=== PATIENT | female | born 1985 | race Caucasian/White ===

== ENCOUNTER → 2018-01-29 18:28 | Observation (INO) ==
--- NOTE | 2018-01-29 18:22 | Discharge Summary ---
Date of Encounter: 01/29/18 Time of Encounter: 18:00 - Discharge Diagnosis (1) 36 to 37 weeks gestation of Priority: Primary Status: Chronic (2) IUGR (intrauterine growth restriction) affecting care of mother Priority: Secondary Status: Chronic Comments: Reactive nonstress test Qualifiers: Fetus number: single or unspecified fetus Trimester: third trimester Qualified Code(s): O36.5930 - Maternal care for other known or suspected poor growth, third trimester, not applicable or unspecified (3) Nicotine dependence Priority: Secondary Status: Chronic Qualifiers: Nicotine product type: cigarettes Substance use status: uncomplicated Qualified Code(s): F17.210 - Nicotine dependence, cigarettes, uncomplicated (4) 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, antepartum Priority: Secondary Status: Chronic - Discharge Medications Home Medications: Vit/Iron Fumarate/FA [ Tablet] 1 each PO DAILY #30 tablet 08/24 [Rx] Buprenorphine HCl [Subutex] 8 mg SL BID 01/29/18 [History] Citalopram Hydrobromide [Celexa] 20 mg PO DAILY 01/29/18 [History] Allergies/Adverse Reactions: 3 Allergy/AdvReac Type Severity Reaction Status Date / Time Cefaclor [From [facility]] Allergy Hives Verified 08/12/17 13:51 Penicillins Allergy Rash Verified 08/12/17 13:51 Date of admission: 01/29/18 15:30 Primary care physician: PCP NONE - Patient Status Disposition: Home, Self-Care Condition: Good Functional capacity at discharge: independent ambulation Overall status at discharge: patient is progressing back to baseline - Discharge Instructions Follow Up With: NONE,PCP [Primary Care Provider] - - Diet and Activity Activity: increase activity as tolerated Hospital Course POKER IN Time Attestation: Total time spent providing and/or coordinating discharge services: Exam - Constitutional General appearance IM: A&O X 3 - Respiratory Respiratory exam: Present: CTAB - Cardiovascular Cardiovascular exam IM: Present: RRR - GI/Abdominal GI/Abdominal exam IM: soft - Rectal Rectal exam: deferred - Additional comments: Cervix is 2 cm dilated/60% effaced/-1 station - VTE Reasons for not Prescribing Prophylaxis: Treatment not Indicated - Low risk for VTE - Attending Attestation mariana soni md facog
== END | disposition home or self-care (01) ==
LOC: 1NENULAB
PROVIDERS: ADMIT Obstetrics & Gynecology; ATTEND Obstetrics & Gynecology

== ENCOUNTER → 2018-02-03 07:11 | Observation (INO) ==
--- NOTE | 2018-02-02 20:00 | OB/GYN Progress Note ---
Date of Encounter: 02/02/18 Time of Encounter: 19:58 - Assessment and Plan (1) 37 weeks gestation of Current Visit: Yes Status: Acute Monitor overnight Discussed potential for emergent related to decelerations Anticipate discharge home POC per consult with Dr Malave. (2) IUGR (intrauterine growth restriction) affecting care of mother Current Visit: No Status: Chronic Qualifiers: Fetus number: single or unspecified fetus Trimester: third trimester Qualified Code(s): O36.5930 - Maternal care for other known or suspected poor growth, third trimester, not applicable or unspecified (3) Nicotine dependence Current Visit: No Status: Chronic Qualifiers: Nicotine product type: cigarettes Substance use status: uncomplicated Qualified Code(s): F17.210 - Nicotine dependence, cigarettes, uncomplicated (4) 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, antepartum Current Visit: No Status: Chronic Subjective - Subjective Principal diagnosis: Prolonged decels in office Interval history: Ms Foley is a at 37 weeks 3 days that presents to triage from the office for prolonged monitoring r/t prolonged decels in the office during NST today. Her EFW last week was in the 11% last with a BPP of 6/8; Her BPP today was a 8/8 with normal dopplers. She states positive movement. She denies headache, vision changes, epigastric pain, and leaking of fluid/ vaginal pain. Antepartum ROS: movement normal, no new complaints, no contractions Objective - Vital Signs Vital Signs: Intake and Output 02/02/18 02/02/18 02/02/18 07:59 15:59 23:59 Other: Weight 68.039 kg Patient Weight 02/02/18 23:59 Weight 68.039 kg - Exam FHR: auscultation normal, category 1 FHR comments: Baseline 130 with category I tracing; irregular ctx. Auscultation: bilateral: normal Abdomen: Present: normal appearance, soft, gravid Uterus: Present: normal. Absent: firm
[2018-02-02 20:38] LABS: Bilirubin,Urine Small (Negative); Blood,Urine Negative (Negative); Clarity,Urine Cloudy (Clear); Color,Urine Orange (Yellow); Glucose,Urine (UA) Normal (Normal); Ketones,Urine Trace mg/dL (Negative); Leukocyte Esterase,Urine Small (Negative); Nitrite,Urine Positive (Negative); Protein,Urine 30 mg/dL (Neg-Trace); Specific Gravity,Urine > 1.030 (1.010-1.025)
[2018-02-02 20:40] LABS: Bacteria,Urine Few per hpf (None-Few); Squamous Epithelial Cell,Urine Many per lpf (None-Few)
[2018-02-02 20:47] LABS: Amphetamine Screen,Urine Negative ng/mL (Cutoff=1000); Barbiturate Screen,Urine Negative ng/mL (Cutoff=200); Benzodiazepines Screen,Urine Negative ng/mL (Cutoff=200); Cannabinoid Screen,Urine Positive ng/mL (Cutoff = 50); Cocaine Screen,Urine Negative ng/mL (Cutoff= 300); Opiate Screen,Urine Negative ng/mL (Cutoff=300); Phencyclidine Screen,Urine Negative ng/mL (Cutoff=25)
[2018-02-02 20:51] LABS: Hyaline Casts,Urine Few per lpf (None-Few)
[~2018-02-03 07:11] MED LIST: Nitrofurantoin (BID) 100 MG CAPSULE PO SCH
== END | disposition home or self-care (01) ==
LOC: 1NENULAB
PROVIDERS: ADMIT Advanced Practice Midwife; ATTEND Advanced Practice Midwife

== ENCOUNTER 2018-02-06 12:04 | Inpatient (IN) ==
[2018-02-06] MEDS ORDERED: Famotidine 20 MG/2 ML VIAL IVP PRN (13:05)
[2018-02-06] MEDS ORDERED: Ondansetron 4 MG/2 ML VIAL IVP PRN (13:05)
[2018-02-06] MEDS ORDERED: Metoclopramide 10 MG/2 ML VIAL IVP PRN (13:05)
[2018-02-06] MEDS ORDERED: Naloxone 0.4 MG/ML INJ IVP PRN (13:05)
[2018-02-06] MEDS ORDERED: *HR* Nalbuphine 10 MG/ML AMPUL IVP PRN (13:05)
[2018-02-06] MEDS ORDERED: Ringers Solution, Lactated 1,000 ML IVC SCH (13:15)
[2018-02-06] MEDS ORDERED: miSOPROStol 25 MCG TABLET PO PRN (13:20)
[2018-02-06] MEDS ORDERED: Loratadine 10 MG TABLET PO STA (13:45)
[2018-02-06] MEDS ORDERED: Loratadine 10 MG TABLET PO ONE (13:47)
--- NOTE | 2018-02-06 13:49 | OB/GYN History & Physical ---
Date of Encounter: 02/06/18 Time of Encounter: 13:48 Assessment and Plan (1) Encounter for induction of labor Current visit: Yes Status: Acute Transadominal US has BPP of 8/8 with EFW of 5lb in the 5%. Admit to Labor and Delivery Nubain and Epidural as desired 50 mcg of cytotec Continuous monitoring GBS negative Anticipate Vaginal Delivery OB occupational therapist rehab manager is Dr. Sapp (2) IUGR (intrauterine growth restriction) affecting care of mother Current visit: No Status: Chronic Qualifiers: Fetus number: single or unspecified fetus Trimester: third trimester Qualified Code(s): O36.5930 - Maternal care for other known or suspected poor growth, third trimester, not applicable or unspecified (3) Nicotine dependence Current visit: No Status: Chronic Qualifiers: Nicotine product type: cigarettes Substance use status: uncomplicated Qualified Code(s): F17.210 - Nicotine dependence, cigarettes, uncomplicated (4) 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, antepartum Current visit: No Status: Chronic (5) 37 weeks gestation of Current visit: No Status: Acute History of Present Illness Chief complaint: Induction for labor for High Risk HPI: Ms. Foley is a 32 year old female 38 weeks who presents to the labor and delivery floor for induction of labor secondary to high risk . Has been undergoing surveillance. IUGR has been suspected. Estimated weight last week was at the 11th percentile and this week in the 5th percentile . Patient's nonstress test was category 2. Patient had transabdominal US exam showing duran VTX male, +FHR, Grade 1 Placenta- EFW 5lb at 5.1%, NELLIE 8.[address] and bi--BPP 8/8. States she feels movement constantly, denies any baginal bleeding or leakage of clear fluid. Was recently diagnosed with UTI and given Macrobid for treatment. Primary OB provider is Dr. Sapp. Patients states she smoke marijuana last one week ago. Reports smoking 1-2 PPD. Reports having sinus congestion starting last night. Patient is currently on Subutex. She is been followed in our group without any problems. Blood type- A positive GBS status: negative HEP B surface antigen: positive HIV Ab- nonreactive Treponema AB- negative G/C- negative Varicella- positive Urine Drug screen: obtained prior to admission is positive for marijuana. Past Med Surg Social Fam HX - Past Medical History Medical history: no medical history Psychiatric history: anxiety, bipolar, depression - Past Surgical History Surgical History: other Additional surgical history: Teeth extraction - Social History Smoking Status: Current every day smoker Smokeless Tobacco Status: No Alcohol use: none Drug use: marijuana - Family History Mother History Unknown: Yes Adopted: [place]: ricardo foley Living Status: Still Living Hx Family Cardiac Disorders: Yes (2 heart attacks) Hx Family Respiratory Disorders: Yes (THERMOSTAT MACHINE TENDER and emphysema) Hx Family Cancer: No Hx Family GI Disorders: Yes (Colostomy bag from impacted bowels) Hx Family Genitourinary Disorders: No Hx Family Endocrine Disorder: No Hx Family Musculoskeletal Disorders: No Hx Family Neuromuscular Disorders: No Hx Family Neurologic Disorders: No Hx Family HEENT Disorders: No Hx Family Autoimmune Disorders: No Hx Family Reproductive Disorders: No Hx Family Psychosocial Disorders: Yes (depression and anxiety) Hx Family Medical Disorders: No Obstetrical History - Pregnancies : 3 Para: 2 Term: 1 : 1 Ab's: 0 Livin Medications and Allergies Vit/Iron Fumarate/FA [ Tablet] 1 each PO DAILY #30 tablet 08/24 [Rx] Buprenorphine HCl [Subutex] 8 mg SL BID 01/29/18 [History] Citalopram Hydrobromide [Celexa] 20 mg PO DAILY 01/29/18 [History] Nitrofurantoin (BID) [Macrobid] 100 mg PO BID 5 Days #10 capsule 02/03/18 [Rx] 3 Allergy/AdvReac Type Severity Reaction Status Date / Time Cefaclor [From [facility]] Allergy Hives Verified 02/04/18 09:30 Penicillins Allergy Rash Verified 02/04/18 09:30 Review of System OB All systems PM: reviewed and no additional remarkable complaints except as stated - Constitutional Constitutional ROS IM: no fever(s) - Nose, mouth, and throat Nose, mouth and throat: nasal congestion - Cardiovascular Cardiovascular: leg edema (mild), no dyspnea - Respiratory Respiratory: no cough, no dyspnea - Gastrointestinal Gastrointestinal: no abdominal pain - Genitourinary Genitourinary: no abnormal vaginal bleeding, no vaginal discharge - Neurological Nerological: headache(s) (frontal) Exam - Constitutional Constitutional: no acute distress - HEENT HEENT: PERRL - Neck Neck exam: normal inspection - Lungs Respiratory exam: CTAB - Cardiovascular Cardiovascular exam: RRR, +S1, +S2 - Abdomen Abdomen: Present: gravid, non tender - Extremities Extremities exam: normal capillary refill - Uterus Uterus exam: Absent: tender Results Result Diagrams: 02/06/18 15:25 All other labs normal. - VTE Reasons for not Prescribing Prophylaxis: Treatment not Indicated - Low risk for VTE - Attending Attestation I have examined the patient, reviewed the resident's note, and agree with its contents. Mamadou Sapp MD FACOG
[2018-02-06 15:49] LABS: Basophils % 0.3 %; Eosinophils # 0.1 K/mcL (0.0-0.6); Eosinophils % 1.2 %; Hemoglobin 13.5 g/dL (11.5-15.4); Immature Granulocytes % 0.6 % (0-4); Lymphocytes # 1.7 K/mcL (0.6-4.6); Lymphocytes % 18.4 %; Mean Corpuscular HGB Conc 33.8 g/dL (31.6-35.5); Mean Corpuscular Hemoglobin 30.4 pg (28.0-33.3); Mean Corpuscular Volume 90.1 fL (83.0-100.0); Mean Platelet Volume 12.9 fL (9.4-12.4); Monocytes # 0.7 K/mcL (0.0-1.3); Monocytes % 7.5 %; Neutrophils # 6.8 K/mcL (1.6-8.9); Platelet Count 188 K/mcL (140-400); Red Blood Count 4.44 M/mcL (3.82-4.97); Red Cell Distribution Width 12.9 % (11.5-14.5)
[2018-02-06 15:56] LABS: Amphetamine Screen,Urine Negative ng/mL (Cutoff=1000); Barbiturate Screen,Urine Negative ng/mL (Cutoff=200); Benzodiazepines Screen,Urine Negative ng/mL (Cutoff=200); Cannabinoid Screen,Urine Positive ng/mL (Cutoff = 50); Cocaine Screen,Urine Negative ng/mL (Cutoff= 300); Opiate Screen,Urine Negative ng/mL (Cutoff=300); Phencyclidine Screen,Urine Negative ng/mL (Cutoff=25)
[2018-02-06] MEDS: Nicotine 21 MG PATCH.TD24 TD SCH (19:39)
[2018-02-06] MEDS: *HR* Buprenorphine HCl 8 MG TAB.SUBL SL SCH (20:28)
--- NOTE | 2018-02-06 20:49 | OB Labor Progress Note ---
Date of Encounter: 02/07/18 Time of Encounter: 20:48 Labor Progress Note - Subjective Subjective: 32-year-old female 38 weeks reports that she is still doing well. He reports that uterine contractions are becoming more frequent in nature. - Cervix Cervix: 3 cm, 80% effacement, -1 - Interventions Interventions: We will start Pitocin at this time - Plan Plan: Pitocin administration Continuous monitoring I examined this patient and my medical decision-making was reviewed with the Resident Physician. I agree with the documented findings, disposition and treatment plan as described except to the extent set forth below. Mamadou Sapp MD FACOG
[2018-02-06] MEDS ORDERED: Oxytocin 20 units/ LR 1000 mL 20 UNIT/1,000 ML BAG IVC ONE (20:52)
[2018-02-06] MEDS ORDERED: Oxytocin 20 units/ LR 1000 mL 20 UNIT/1,000 ML BAG IVC SCH (21:00)
[2018-02-06] MEDS ORDERED: Epidural Premix (fent/bupiv) 110 ML EP ONE (23:02)
[2018-02-06] MEDS ORDERED: Bupivacaine-MPF 0.25% 10 ML VIAL ONE (23:04)
[2018-02-06] MEDS ORDERED: Lidocaine -MPF 1% 5 ML AMPUL ONE (23:04)
--- NOTE | 2018-02-06 23:38 | Anesthesia Evaluation PreOp ---
Date of Encounter: 02/06/18 Time of Encounter: 23:05 - Past History Planned Operation: Labor Epidural Cardiac History: Denies any Significant Hx Pulmonary History: Denies Any Significant HX SHELLFISH SHUCKER History: Denies Any Significant HX Other Medical History: Denies Any Significant HX Anesthesia History: No Prior Anesthetic Complications : Yes (38 weeks ) Alcohol Use: none Drug use: marijuana Medications and Allergies Vit/Iron Fumarate/FA [ Tablet] 1 each PO DAILY #30 tablet 08/24 [Rx] Buprenorphine HCl [Subutex] 8 mg SL BID 01/29/18 [History] Citalopram Hydrobromide [Celexa] 20 mg PO DAILY 01/29/18 [History] Nitrofurantoin (BID) [Macrobid] 100 mg PO BID 5 Days #10 capsule 02/03/18 [Rx] 3 Allergy/AdvReac Type Severity Reaction Status Date / Time Cefaclor [From [facility]] Allergy Hives Verified 02/04/18 09:30 Penicillins Allergy Rash Verified 02/04/18 09:30 - Meds/Allergy Pre-op Review Medications Reviewed: Yes Allergies Reviewed: Yes Beta Blockers on Current Med List: No Anesthesia Results - Labs 02/06/18 15:25 Laboratory Tests 02/15/16 02/06/18 00:26 15:25 Hgb 13.5 Hct 40.0 Plt Count 188 Sodium 137 Potassium 3.5 BUN 14 Creatinine 0.69 Anesthesia Exam O2 Sat Height 1.57 m Height 1.57 m Weight 69.7 kg Weight 69.7 kg Height: 5'2 Weight: 153 lbs NPO (# of Hours): MN Pain Scale: 4 - HEENT Pupil (Motor): Pupils equal, EOMI Mallampati: II Teeth: Edentulous Oral Opening: Greater than 3 - SHELLFISH SHUCKER LOC: Oriented SHELLFISH SHUCKER Motor: Normal RUE, Normal LUE, Normal RLE, Normal LLE, Normal Face SHELLFISH SHUCKER Sensory: Normal: RUE, LUE, RLE, LLE, Face - Cardiac Rhythm: Regular Murmur: None JVD: No Carotid Bruit: No - Pulmonary Breath Sounds: bilateral Clear Respiratory Effort: Symmetrical Anesthesia Assess/Plan ASA Score: 2 Modified Jerald Scale for Level of Consciousness: Cooperative, oriented, and tranquil Anesthetic Plan: Regional Monitoring Plan: Standard Monitors Recovery Plan: Other (Discussed LE, risks and benefits, agrees to proceed)
--- NOTE | 2018-02-06 23:41 | Anesthesia Procedures ---
Date of Encounter: 02/06/18 Time of Encounter: 23:05 Procedures: Anesthesia - Epidural/Spinal Patient ID/Chart reviewed: Yes Patient examined: Yes OB Eval: Gestational age: 38weeks OB Eval: : 3 OB Eval: Hx Para: 1 OB Eval: Dilated at (cm): 4 OB Eval: Contractions: Non-stressed pattern Consent Obtained: Yes Supplemental Oxygen: None/Room Air Site Prep: Aseptic Technique, Sterile prep and drape, 0.5% Chlorhexidine/Alcohol Patient position: upright Local Anesthetic: Lidocaine 1% Amount of Local Anesthetic used: 3 Touhy Needle Gauge: 19 Touhy Needle Depth (cm): 4 Test Dose (1.5% Lido + Epi): Volume given (mls): 3 Test Dose Result: Negative Loading Dose Administered: Thru Touhy Needle Infusion Med: 0.125% Bupivacaine w/ 2 mcg/ml Fentanyl Infusion Rate (mls/hr): [address]: Tegaderm, Tape Interspace Used: L3-L4 Loss of Resistance (DAMARIS): Yes Blood: No CSF: No Paresthesia: No
--- NOTE | 2018-02-07 00:04 | OB Labor Progress Note ---
Date of Encounter: 02/06/18 Time of Encounter: 23:50 Labor Progress Note - Subjective Subjective: comfortable with epidural - Cervix Cervix: 3/100/-1 - Heart Tones Heart Tones: 125/moderate/+accels/-decels - Interventions Interventions: AROM small amount of clear fluid - Plan Plan: pitocin per policy frequent repositioning anticipate
--- NOTE | 2018-02-07 03:09 | OB/GYN Procedure Note ---
Delivery - Delivery Date: 02/07/18 Provider: Linda Licona (Bonilla chavez, PGY2) Intrapartum events: none Delivery induction: AROM, oxytocin, misoprostol Delivery monitor: external FHT, external uterine Anesthesia: epidural Quantitated Blood Loss: 50 - Infant (s) Infant A Infant Delivery Date: 02/07/18 Infant Delivery Time: 02:44 Presentation: vertex Position: OA Route of delivery: Gender: Male Viability: Viable Pounds: 4 Ounces: 14 Weight Gram: 2205 kg at 1 minute: 8 at 5 mins: 9 Shoulder Dystocia: not encountered Specimens collected: cord blood Placenta: spontaneous Cord: 3 umbilical vessels, other (body cord) - Repair Episiotomy: none Laceration Description: None - Complications Delivery complications: none Delivery comments: Induction of Labor for IUGR, progressed to complete, maternal bearing down efforts to , of live born male, vertex delivered OA, shoulders and body easily followed, body cord noted around bilateral arms, no nuchal cord, or shoulder dystocia encountered. Vigorous placed on maternal abdomen. APGARS 8, 9. Placenta delivered spontaneously (earnestine), and complete upon inspection, fundus massaged until firm, and pitocin started per policy. No perineal lacerations noted, EBL 50 cc. - Disposition Mom disposition: stable in LDR [place] disposition: stable in LDR
--- NOTE | 2018-02-07 03:22 | OB/GYN Procedure Note ---
Delivery - Delivery Date: 02/07/18 Provider: Linda Licona (Bonilla chavez, PGY2) Intrapartum events: none Delivery induction: AROM, oxytocin, misoprostol Delivery monitor: external FHT, external uterine Anesthesia: epidural - Infant (s) A Delivery Date: 02/07/18 Delivery Time: 02:44 Presentation: vertex Position: OA Route of delivery: Gender: Male Viability: Viable Pounds: 4 Ounces: 14 Weight Gram: 2205 kg at 1 minute: 8 at 5 mins: 9 Shoulder Dystocia: not encountered Specimens collected: cord blood Placenta: spontaneous Cord: 3 umbilical vessels, other (body cord) - Repair Episiotomy: none Laceration Description: None - Complications Delivery complications: none Delivery comments: Induction of Labor for IUGR, progressed to complete, maternal bearing down efforts to , of live born male, vertex delivered OA, shoulders and body easily followed, body cord noted around bilateral arms, no nuchal cord, or shoulder dystocia encountered. Vigorous infant placed on maternal abdomen. APGARS 8, 9. Placenta delivered spontaneously (colby), and complete upon inspection, fundus massaged until firm, and pitocin started per policy. No perineal lacerations noted, EBL 50 cc. Assited by Bonilla Chavez PGY-2. I was gowned and gloved and participated for the entire procedure. - Disposition Mom disposition: stable in LDR disposition: stable in LDR
[2018-02-07] MEDS ORDERED: Acetaminophen 325 MG TABLET PO ONE (03:56)
[2018-02-07] MEDS: Prenatal Vit/FA 1 EACH TABLET PO SCH (08:51)
[2018-02-07] MEDS: Nicotine 21 MG PATCH.TD24 TD SCH (08:52)
[2018-02-07] MEDS: *HR* Buprenorphine HCl 8 MG TAB.SUBL SL SCH ×2 (08:55→20:08)
[2018-02-07] MEDS: Ibuprofen 600 MG TABLET PO PRN ×2 (14:48→20:07)
[2018-02-08 08:26] VITALS: BP 121/84
[2018-02-08] MEDS: Prenatal Vit/FA 1 EACH TABLET PO SCH (08:44)
[2018-02-08] MEDS: *HR* Buprenorphine HCl 8 MG TAB.SUBL SL SCH (08:45)
[2018-02-08] MEDS: Ibuprofen 600 MG TABLET PO PRN (08:48)
[2018-02-08] MEDS: Nicotine 21 MG PATCH.TD24 TD SCH (08:54)
--- NOTE | 2018-02-08 09:56 | Discharge Summary ---
Date of Encounter: 02/08/18 Time of Encounter: 09:54 - Discharge Diagnosis (1) Vaginal delivery Priority: Primary Status: Acute Comments: Doing well s/p vaginal delivery Day 1 Pain is well controlled Lochia is light and without clots VSS Passing flatus and voiding without difficulty Discharge home today - Discharge Medications Prescriptions: Ibuprofen [Motrin] 600 mg PO Q6HR PRN #30 tablet PRN Reason: Mild To Moderate Pain Home Medications: Vit/Iron Fumarate/FA [ Tablet] 1 each PO DAILY #30 tablet 08/24 [Rx] Buprenorphine HCl [Subutex] 8 mg SL BID 01/29/18 [History] Citalopram Hydrobromide [Celexa] 20 mg PO DAILY 01/29/18 [History] Ibuprofen [Motrin] 600 mg PO Q6HR PRN #30 tablet 02/08/18 [Rx] Allergies/Adverse Reactions: 3 Allergy/AdvReac Type Severity Reaction Status Date / Time Cefaclor [From [facility]] Allergy Hives Verified 02/04/18 09:30 Penicillins Allergy Rash Verified 02/04/18 09:30 Data Procedures and tests throughout hospitalization: Laboratory Tests 02/06/18 02/06/18 15:25 15:25 WBC 9.4 RBC 4.44 Hgb 13.5 Hct 40.0 MCV 90.1 MCH 30.4 MCHC 33.8 RDW 12.9 Plt Count 188 MPV 12.9 H Immature Gran % 0.6 Seg Neutrophils % 72.0 Lymphocytes % 18.4 Monocytes % 7.5 Eosinophils % 1.2 Basophils % 0.3 Neutrophils # 6.8 Lymphocytes # 1.7 Monocytes # 0.7 Eosinophils # 0.1 Basophils # 0.0 Urine Opiates Screen Negative Ur Barbiturates Screen Negative Ur Phencyclidine Scrn Negative Ur Amphetamines Screen Negative U Benzodiazepines Scrn Negative Urine Cocaine Screen Negative U Marijuana (THC) Screen Positive H Ur Drug Screen Interp See Below Date of admission: 02/06/18 12:04 Primary care physician: PCP WAGNER Discharging clinician: Joie Farley Anticipated date of discharge: 02/08/18 - Patient Status Disposition: Home, Self-Care Condition: Good Functional capacity at discharge: independent ambulation Overall status at discharge: patient is progressing back to baseline - Discharge Instructions Follow Up With: NONE,PCP [Primary Care Provider] - Linda Licona CNM [Advanced Practice Nurse] - - Diet and Activity Activity: increase activity as tolerated Diet: regular diet Hospital Course Reason for admission: induction of labor Delivery: Episiotomy: none Laceration: 1st degree Other procedures: none complications: none Discharge diagnosis: IUP at term delivered [place] baby: male Time Attestation: Total time spent providing and/or coordinating discharge services: Time Spent: Less than 30 minutes Exam - Constitutional Vitals: Temp Pulse Resp BP Pulse Ox 98.3 F 65 16 121/84 96 02/08/18 07:30 02/08/18 07:30 02/08/18 07:30 02/08/18 07:30 02/07/18 19:58 General appearance IM: cooperative, A&O X 3, pleasant - Respiratory Respiratory exam: Present: CTAB - Cardiovascular Cardiovascular exam IM: Present: RRR, +S1, +S2 - GI/Abdominal GI/Abdominal exam IM: normal bowel sounds - Uterine Tone: Firm Uterus Position: At Umbilicus, Midline - Extremities Exam Extremities exam IM: Present: normal capillary refill, normal inspection, radial pulses palpable and symmetrical - Neurological Exam Neurological exam: alert, oriented X3, reflexes normal
== END 2018-02-08 14:00 | disposition home or self-care (01) | DRG 560 ==
LOC: 1NENULAB 12:04 → 1NENUOBS 02-07 05:31
PROVIDERS: ADMIT Obstetrics & Gynecology; ATTEND Obstetrics & Gynecology